=== PATIENT | male | born 1955 | race Caucasian/White ===

== ENCOUNTER 2021-06-02 07:49 | Inpatient (IN) | payer OTHER, MEDICARE ==
[~2021-06-02] VITALS: Ht 180.3 cm; Wt 113.4 kg
[2021-06-02] MEDS ORDERED: OXYCODONE HCL15 MG PO (11:30)
[2021-06-02] MEDS ORDERED: FLECTOR1 EAC1 TD (11:31)
[2021-06-02] MEDS ORDERED: GABAPENTIN100 MG PO (11:32)
[2021-06-02] MEDS ORDERED: LINZESS72 MCG PO (11:33)
[2021-06-02] MEDS ORDERED: TIZANIDINE HCL6 MG PO (11:34)
[2021-06-02] MEDS ORDERED: AURYXIA210 MG PO (11:35)
[2021-06-02] MEDS ORDERED: FLONASE 0.05% N16 GM (11:36)
[2021-06-02] MEDS ORDERED: COREG 25MG TAB25 MG PO (11:36)
[2021-06-02] MEDS ORDERED: OMEPRAZOLE40 MG PO (11:37)
[2021-06-02] MEDS ORDERED: LANTUS SOL100 UNIT/1 SQ (11:37)
[2021-06-02] MEDS ORDERED: HUMALOG100 UNIT/3 SC (12:13)
[2021-06-02 13:44] LABS: HEMOGLOBIN 8.6 gm/dl (14.0-17.5)
[2021-06-02 13:55] LABS: WHITE BLOOD COUNT 32.6 K/UL (4.5-11.0)
[2021-06-02 13:56] LABS: RED BLOOD COUNT 3.34 M/UL (4.20-5.50)
[2021-06-02 14:09] LABS: BUN/CREATININE RATIO 9 (0-10)
[2021-06-03 03:31] LABS: HEMOGLOBIN 8.6 gm/dl (14.0-17.5); RED BLOOD COUNT 3.38 M/UL (4.20-5.50)
[2021-06-03 03:33] LABS: WHITE BLOOD COUNT 31.5 K/UL (4.5-11.0)
[2021-06-04 12:27] LABS: HEMOGLOBIN 8.4 gm/dl (14.0-17.5); RED BLOOD COUNT 3.31 M/UL (4.20-5.50); WHITE BLOOD COUNT 24.9 K/UL (4.5-11.0)
--- NOTE | 2021-06-05 00:27 | NUR ---
DURING CHANGE OF SHIFT WHEN RECIEVING REPORT HOUSE WAS CALLED AT 1853 TO SEE IG BATCH MAKER WAS ABLE TO CONTACT DR. AARON TO HAVE HIM EVALUATE IF PATIENT WAS ALERT AND ORIENTED ENOUGH TO MAKE DECISIONS FOR HIMSELF IN REGARDS TO END OF LIFE CARE. NURSE WAS TOLD AT THIS TIME BATCH MAKER WAS NOT ABLE TO REACH MD AND FOR NURSE TO ATTEMPT AGAIN TO CONTACT HIM. AT 1853 DR. AARON WAS CALLED AND TOLD THAT PER BATCH MAKER IN THIS SITUATION THAT MD NEEDED TO COME AND EVALUATE THAT PATIENT IS ORIENTED ENOUGH TO MAKE THE DECISION TO HAVE HOSPICE CARE DUE TO FAMILY CONCERNS THAT PATIENT IS INDECISIVE AND NOT ORIENTED. DR. AARON TOLD NURSE THAT HE HAD VISITED THE FLOOR EARLIER AND THAT HE WAS ALERT AND ORIENTED X4 AND THAT THERE WAS NO REASON FOR HIM TO VISIT. THE PATIENT WANTS TO HAVE MEDICATION WHILE INPATIENT TO STAY COMFORTABLE AND NOT CURATIVE AND REQUEST TO BE COMFORT CARE AND GO HOME TO - MD NOTIFIED OF THIS REQUEST. MD INFORMED NURSE HE WOULD BE TO THE FLOOR TO SEE THE PATIENT SHORTLY. AT 1904 DR. AARON CAME TO FLOOR AND SEEN PATIENT. COMFORT CARE MEASURES AND WHAT IT ENTAILS WAS TALKED ABOUT WITH PATIENT. MD ASKED PATIENT ORIENTATION QUESTIONS AND PATIENT ANSWERED APPROPRIATELY. MD INFORMED PATIENT THAT HE WOULD ONLY HAVE COMFORT CARE ORDERS IF HE WISHED TO GO THAT ROUTE. PATIENT STILL WISHED TO HAVE COMFORT CARE ORDERS. COMFORT CARE ORDERS WERE INTIATED AND FAXED TO PHARMACY. TO UPDATE BATCH MAKER ON THE SITUATION NURSESVIRIDIANA AND GERARDO ARRIOLA VISITED BATCH MAKER'S OFFICE ON HOW TO APPROACH FAMILY. THIS WAS DONE AT 1914. AT 1931 BOTH GERARDO ARRIOLA AND VIRIDIANA RIVAS CALLED FOR AN UPDATE ON THE SITUATION AND ASKING ABOUT HOSPICE CARE AND THE PATIENT GOING HOME TO HER. THE WAS NOT HAPPY WITH THE PATIENT'S DECISION BUT WAS EXPLAINED THAT MD DID EVALUATE THE PATIENT AND THAT PATIENT IS ORIENTED X4. SAID SHE WOULD BE HOME ALL THE TIME AND THAT HE WOULD BE CARED FOR WHEN HE GOES HOME ON HOSPICE CARE.
--- NOTE | 2021-06-07 12:29 | NUR ---
PATIENT BEGAN SCREAMING OUT FOR HELP AND THAT HE NEEDED OXYGEN IMMEDIATELY. TO APPEASE THE PATIENT, HE WAS PLACED ON 2L OF [address] GONSALES WAS NOTIFIED AND STATED TO DO WHAT WAS NECESSARY TO KEEP PATIENT COMFORTABLE.
--- NOTE | 2021-06-08 19:29 | NUR ---
PATIENT FOUND WITH FEET WOUND DRESSINGS SATURATED AND LEAKING ONTO BEDDING. I OFFERED TO CHANGE THE DRESSINGS FOR THE PATIENT, THE PATIENT STATED "PLEASE DONT, THEY DO THIS EVERY TWO HOURS THERE IS NO NEED. WHEN YOU ALL TOUCH ME IT MAKES ME HURT MORE." PATIENT STATED HE WOULD NOTIFY ME WHEN HE WANTED HIS DRESSINGS CHANGED.
--- NOTE | 2021-06-09 09:08 | NUR ---
patient refused blood sugar checked via glucometer
--- NOTE | 2021-06-09 12:26 | NUR ---
has attempted several times to change wound care dressing, change position and change bed patient refused.
--- NOTE | 2021-06-10 14:21 | NUR ---
patient requested to be turn, wound care dressing change today. performed the above and patient appears to be tolerated well
--- NOTE | 2021-06-11 17:39 | NUR ---
patient refused dressing change, asked several times and continously refused.
--- NOTE | 2021-06-12 09:50 | NUR ---
no pain medications administered with the patient, patient refused to have pain medications at this time
--- NOTE | 2021-06-12 10:56 | NUR ---
informed dr. whitney of patient refusal to change wound dressing
[2021-06-12] MEDS ORDERED: DILAUDID 2 MG TA2 MG PO (11:02)
[2021-06-12] MEDS ORDERED: FENTANYL1 EAC1 TOP ×3 (11:02→11:40)
[2021-06-12] MEDS ORDERED: ATIVAN 1MG TABLE1 MG PO (11:02)
--- NOTE | 2021-06-12 11:08 | NUR ---
patient refused to have pain medicine this morning and stated allen ok right now. patient satisfied with pain management at this time
== END 2021-06-12 17:20 | disposition home health service (06) | DRG 871 ==
LOC: PROG CARE 07:49 → M/S 10:29 → PROG CARE 10:29 → M/S 06-07 03:47
PROVIDERS: Internal Medicine; Internal Medicine Nephrology; ADMIT Internal Medicine
PROC: B24BZZZ Ultrasonography of Heart with Aorta (ICD-10-PCS; principal; 2021-06-03)
PROC: 3E033XZ Introduction of Vasopressor into Peripheral Vein, Percutaneous Approach (ICD-10-PCS; 2021-06-03)
PROC: 8E0ZXY6 Isolation (ICD-10-PCS; 2021-06-03)
PROC: 5A1D70Z Performance of Urinary Filtration, Intermittent, Less than 6 Hours Per Day (ICD-10-PCS; 2021-06-04)
DX: A41.9 Sepsis, unspecified organism (principal); U07.1 COVID-19; J12.82 Pneumonia due to coronavirus disease 2019; R65.21 Severe sepsis with septic shock; J96.01 Acute respiratory failure with hypoxia; L97.429 Non-pressure chronic ulcer of left heel and midfoot with unspecified severity; L97.419 Non-pressure chronic ulcer of right heel and midfoot with unspecified severity; M86.8X6 Other osteomyelitis, lower leg; E11.52 Type 2 diabetes mellitus with diabetic peripheral angiopathy with gangrene; I45.2 Bifascicular block; L03.116 Cellulitis of left lower limb; L03.115 Cellulitis of right lower limb; E87.1 Hypo-osmolality and hyponatremia; J98.11 Atelectasis; Z66 Do not resuscitate; Z51.5 Encounter for palliative care; L89.322 Pressure ulcer of left buttock, stage 2; L89.312 Pressure ulcer of right buttock, stage 2; E78.5 Hyperlipidemia, unspecified; E11.22 Type 2 diabetes mellitus with diabetic chronic kidney disease; E66.01 Morbid (severe) obesity due to excess calories; E11.621 Type 2 diabetes mellitus with foot ulcer; K64.9 Unspecified hemorrhoids; K59.00 Constipation, unspecified; E11.69 Type 2 diabetes mellitus with other specified complication; I11.0 Hypertensive heart disease with heart failure; I50.9 Heart failure, unspecified; E11.628 Type 2 diabetes mellitus with other skin complications; G89.4 Chronic pain syndrome; I45.10 Unspecified right bundle-branch block; D64.9 Anemia, unspecified; I08.3 Combined rheumatic disorders of mitral, aortic and tricuspid valves; Z99.2 Dependence on renal dialysis; Z88.8 Allergy status to other drugs, medicaments and biological substances; Z74.01 Bed confinement status; Z85.528 Personal history of other malignant neoplasm of kidney; Z90.5 Acquired absence of kidney; Z79.4 Long term (current) use of insulin; Z86.73 Personal history of transient ischemic attack (TIA), and cerebral infarction without residual deficits; Z68.35 Body mass index [BMI] 35.0-35.9, adult
CPT/HCPCS: ECHO; 36415; 71045; 80048; 80053; 80202; 82550; 82553; 82962; 84484; 85025; 86140; 87070; 87077; 87186; 87205; 90935; 90937; 93005; 93306; 93925; A6212; J1170; J1644; J2060; J2270; J2543; J3370; J7070; Q0177